=== PATIENT | male | born 1960 | race Caucasian/White ===

== ENCOUNTER 2021-04-25 09:09 | Inpatient (IN) | payer OTHER ==
[~2021-04-25] VITALS: Ht 170.2 cm; Wt 87.1 kg
[~2021-04-25 09:09] MED LIST: AVELOX 400 MG400 MG; CIPROFLOXACIN500 M3 PO; DEMADEX10 MG PO; K-DUR10 MEQ PO; LACTULOSE20 GM/30 M PO; LANTUS SUBQ; NOVOLOG100 UNIT/1; OXYCONTIN CR 1010 M1 PO; PROTONIX40 M2; ROXICODONE5 MG PO; XIFAXAN550 M1
[2021-04-25 15:36] VITALS: BP 120/66
--- NOTE | 2021-04-25 16:50 | NUR ---
Wound and cardio consult put in at this time.
--- NOTE | 2021-04-25 17:19 | NUR ---
PT ORIENTED TO ROOM AND UNIT BED LOW AND LOCKED, SIDE RAILS UP X3, CALL LIGHT IN REACH, TELEL APPLIED. WILL CONTINUE TO ASSESS.
[2021-04-25 19:49] LABS: CALCIUM 8.5 mg/dL (8.5-10.1); POTASSIUM 3.3 mmol/L (3.5-5.1)
[2021-04-25 20:04] VITALS: BP 109/56
[2021-04-25 23:39] VITALS: BP 108/59
[2021-04-26 02:54] LABS: HEMATOCRIT 29.9 % (42.0-52.0); HEMOGLOBIN 9.8 gm/dL (14.0-18.0); MCH 29.2 pg (26.0-34.0); MCHC 32.9 g/dL (28.0-37.0); MCV 88.9 fL (80.0-100.0); RBC 3.36 mil/uL (4.50-6.00); RDW 18.2 % (10.5-14.5); WBC 5.8 thou/uL (4.0-11.0)
[2021-04-26 04:07] LABS: ALBUMIN 2.4 g/dL (3.4-5.0); CALCIUM 7.6 mg/dL (8.5-10.1); CREATININE 0.9 mg/dL (0.7-1.3); TOTAL BILIRUBIN 0.6 mg/dL (0.2-1.0); TOTAL PROTEIN 6.3 g/dL (6.4-8.2)
[2021-04-26 04:24] VITALS: BP 110/54
--- NOTE | 2021-04-26 05:12 | NUR ---
SLEPT PART OF SHIFT. DENIES COMPLAINTS OF PAIN THIS SHIFT OR SHORTNESS OF AIR. AGREES TO CALL FOR ASSIST WHEN UP IN ROOM. WORKING ON GOALS AND PLAN OF CARE FOR NOC. CONTINUE TO ASSES.
[2021-04-26 08:12] VITALS: BP 109/63
--- NOTE | 2021-04-26 09:56 | 2DMMODE ---
[facility] [place] [address] 2 D/M-MODE ECHOCARDIOGRAM Name: QUEENJD Room #: 209-P ADM IN M.R.#: [id number] Admission: 04/25/21 Attend Phys: Syed Banks MD Discharge: Date of : 60 Report #: [id number] THIS REPORT FOR: cc: Lc Cain,Saray Taylor,Isaias Azevedo MD ~ APPROVED REPORT Study performed: 04/26/2021 08:17:43 EXAM: Comprehensive 2D, Doppler, and color-flow Echocardiogram Patient Location: Bedside Room #: 209 Status: routine BSA: 1.99 HR: 61 bpm BP: 109/63 mmHg Rhythm: NSR Other Information Study Quality: Adequate Indications Elevated troponin. Hx: Recent CABG, Afib, HTN, DM. 2D Dimensions RVDd: 30.67 mm IVSd: 11.29 (7-11mm) LVOT Diam: 20.84 (18-24mm) LVDd: 42.70 mm PWd: 11.43 (7-11mm) Ascending Ao: 30.04 (22-36mm) LVDs: 29.29 (25-40mm) Left Atrium: 39.98 (27-40mm) Aortic Root: 33.28 mm Volumes Left Atrial Volume (Systole) Single Plane 4CH: 36.15 mL Single Plane 2CH: 39.57 mL LA ESV Index: 20.00 mL/m2 Aortic Valve AoV Peak Jeanmarie.: 1.31 m/s AO Peak Gr.: 6.86 mmHg LVOT Max P.53 mmHg LVOT Max V: 0.94 m/s [facility] [address] [place] [address] 2 D/M-MODE ECHOCARDIOGRAM Name: JD QUEEN Room #: 209-P [facility]#: [id number] Admission: 04/25/21 Attend Phys: Syed Banks MD Discharge: Date of : 60 Report #: [id number] ROGER Vmax: 2.45 cm2 Mitral Valve E/A Ratio: 1.3 MV Decel. Time: 177.45 ms MV E Max Jeanmarie.: 0.85 m/s MV A Jeanmarie.: 0.68 m/s MV PHT: 51.46 ms IVRT: 124.57 ms Pulmonary Valve PV Peak Jeanmarie.: 1.14 m/s PV Peak Gr.: 5.17 mmHg Tricuspid Valve TR Peak Jeanmarie.: 2.34 m/s RAP Estimate: 5.00 mmHg TR Peak Gr.: 22.00 mmHg PA Pressure: 27.00 mmHg Left Ventricle The left ventricle is normal size. There is normal LV segmental wall motion. There is normal left ventricular wall thickness. Left ventricular systolic function is normal. LVEF is 60-65%. The left ventricular diastolic function is normal. Right Ventricle The right ventricle is normal size. The right ventricular systolic function is normal. Atria The left atrium size is normal. The right atrium size is normal. Aortic Valve Aortic valve is moderately sclerotic. Mild aortic regurgitation. There is no aortic valvular stenosis. Mitral Valve The mitral valve is normal in structure. There is no mitral valve regurgitation noted. No evidence of mitral valve stenosis. Tricuspid Valve The tricuspid valve is normal in structure. Mild tricuspid regurgitation. Estimated PAP is 25-30mmHg. Pulmonic Valve The pulmonary valve is normal in structure. Trace pulmonic [facility] [address] [place] [address] 2 D/M-MODE ECHOCARDIOGRAM Name: JD QUEEN Room #: 209-P ADM IN M.R.#: [id number] Admission: 04/25/21 Attend Phys: Syed Banks MD Discharge: Date of : 60 Report #: [id number] regurgitation. Great Vessels The aortic root is normal in size. The ascending aorta is normal in size. IVC is normal in size and collapses >50% with inspiration. Pericardium There is no pericardial effusion. <Conclusion> The left ventricle is normal size. LVEF is 60-65%. The left atrium size is normal. Aortic valve is moderately sclerotic. Mild aortic regurgitation. The mitral valve is normal in structure. The tricuspid valve is normal in structure. Mild tricuspid regurgitation. Estimated PAP is 25-30mmHg. The pulmonary valve is normal in structure. Trace pulmonic regurgitation. The aortic root is normal in size. There is no pericardial effusion. <ELECTRONICALLY SIGNED> By: Isaias Hardy MD 04/26/21955 5 5 Isaias Hardy MD /INF
[2021-04-26 11:02] VITALS: BP 137/64
--- NOTE | 2021-04-26 11:29 | NUR ---
Assess due to consult received. Admit with weakness and elevated troponin. Hx diabetes, CABG, cirrhosis. Pt with wound to LLE. States appetite is good, has no problems controlling BG at home, no wt changes, and no questions regarding diet. Low nutrition risk
--- NOTE | 2021-04-26 11:42 | EKG ---
[address] [address] ELECTROCARDIOGRAM REPORT Name: BRETJD Tyron Room #: 209-P ADM IN M.R.#: [id number] Admission: 04/25/21 Attend Phys: Syed Banks MD Discharge: Date of : 60 Report #: [id number] [facility] Test Date: 2021-04-26 Test Time: 09:52:28 Pat Name: JD QUEEN Department: Room: 209 P Gender: M Change Room Attendant: CAROL : 1960 Requested By: Terence Fuller Order Number: [id number] MD: Dylan Barber Measurements Intervals Bouse Rate: 64 P: -38 KS: 165 QRS: -22 QRSD: 102 T: 35 QT: 572 QTc: 591 Interpretive Statements Sinus rhythm Atrial premature complex Borderline left axis deviation RSR' in V1 or V2, probably normal variant Prolonged QT interval Compared to ECG 01/20/2012 21:53:34 Atrial premature complex(es) now present RSR' in V1 or V2 now present Prolonged QT interval now present Ectopic atrial rhythm no longer present Electronically Signed On 04-26-2021 11:41:57 CDT by Dylan Barber [email or web address] <ELECTRONICALLY SIGNED> By: Dylan Barber MD, FAC 04/26/21 [id number] Dylan Barber MD, [facility] /EPI
--- NOTE | 2021-04-26 15:34 | NUR ---
PT HAD PICC LINE CHANGED TO SIGLE LUMEN PICC PER IR. CTS CHANGE WOUND VAC TO MORE PORTABLE UNIT. INFUSION CLINIC CAME TO PT'S ROOM TO GIVE INSTRUCTIONS. PT UNDERSTANDS ALL FOLLOW UP ORDERS. DISCONTINUE TELE AND PT WILL BE TAKEN TO SECURITY TO GO HOME VIA CAB VOUCHER.
[2021-04-26 15:37] VITALS: BP 127/70
[2021-04-26 16:05] VITALS: BP 127/70
--- NOTE | 2021-04-26 16:07 | NUR ---
INITIAL ASSESSMENT: Received consult. LUIS ENRIQUE reviewed chart. Pt was transferred to [facility] from [facility] due to weakness. Pt with recent CABG at on 03/06/2021. Cardiology consulted. PT may be ready for discharge home over the weekend. LUIS ENRIQUE met with pt at bedside. Introduced role of SW. Pt is alert/orientated x 4. Pt reports he lives alone in an apt in [place], [place]. Pt has a cane and walker to use as needed. Pt was [facility] for 3 weeks and then went to [facility] for 2 weeks. Pt is currently on service with [facility]. Pt's PCP is Dr. Marilee Salguero at [facility]. Pt is aware of possible weekend discharge. Pt states his family might be able to come pick him up to drive him home. Should family not be available, nursing to contact dope house operator helper for a cab voucher. LUIS ENRIQUE discussed transportatino home with Director of Case Mgmt. LUIS ENRIQUE faxed clinical info to [facility] for review. Spoke with Marilee in intake to notify of pt's discharge. Finalized discharge orders will need to be faxed to when available. LUIS ENRIQUE is following to assist as needed with discharge planning. [facility]--
--- NOTE | 2021-04-26 17:05 | NUR ---
PT ASSESSED BY GI AND WOUND CARE TODAY. PT UP WITH PT/OT AND TAKING IN GOOD PO. REPORT GIVEN TO SOCIAL MEDIA SPECIALIST JULIET. WILL CONTINUE TO ASESS.
[2021-04-26 19:41] VITALS: BP 115/59
--- NOTE | 2021-04-26 19:45 | NUR ---
RECEIVED PT FROM MILTON MATTHEWS RN. PT IS PLEASANT, AFEBRILE, VSS, SR ON MONITOR. WILL CONTINUE TO MONITOR PT WOUND SITE ON L LEG AND CALF. PT/OT CONSULTED. FALL PRECAUTIONS IN PLACE. NO CONCERNS AT THIS TIME.
[2021-04-26] MEDS ORDERED: BUMEX2 MG PO (21:47)
[2021-04-26] MEDS ORDERED: LIPITOR80 MG PO (21:52)
--- NOTE | 2021-04-27 01:22 | NUR ---
2000 PATIENT UPSET THAT HIS CALL LIGHT WAS ANSWERED BUT NO ONE CAME BACK. NURSE EXPLAINED THAT SHE WAS UNAWARE OF HIM CALLING AND SAT DOWN AND LISTENED TO CONCERNS. REASSURED THAT LIGHT WILL BE ANSWERED THIS SHIFT AND WROTE NURSES PHONE NUMBER ON BOARD FOR PATIENT TO CALL DIRECTLY. ALSO INFORMED WOULD PASS INFO IN DAILY HUDDLE BETWEEN NURSES IN AM. INFORMED CUPOLA PATCHER OF SITUATION AND ASKED TO COME VISIT PATIENT WHEN ABLE.
[2021-04-27 02:06] LABS: HAV IgM AB (ANTI-HAV IgM) Negative (Negative); HEPATITIS B SURFACE AG Negative (Negative); HEPATITIS C VIRUS AB >11.0 (0.0-0.9)
[2021-04-27 03:57] LABS: INR 1.16; PROTIME 12.6 Seconds (10.5-12.1)
[2021-04-27 04:10] LABS: ALBUMIN 2.3 g/dL (3.4-5.0); DIRECT BILIRUBIN 0.2 mg/dL (<0.1-0.2); TOTAL BILIRUBIN 0.6 mg/dL (0.2-1.0); TOTAL PROTEIN 6.5 g/dL (6.4-8.2)
[2021-04-27 04:32] VITALS: BP 119/63
--- NOTE | 2021-04-27 05:13 | NUR ---
RESTING QUIETLY. STILL AWAITING VISIT FROM ENVIRONMENTAL REMEDIATION CONSULTANT. REMINDED ENVIRONMENTAL REMEDIATION CONSULTANT OF NEED TO VISIT. UP AD DEISY IN ROOM NEEDED. CONTINUE TO ASSES.
--- NOTE | 2021-04-27 06:06 | NUR ---
PER RN, PATIENT REQUESTING TO SPEAK TO CHOKE SETTER. PT'S DOOR CLOSED ON ARRIVAL. KNOCKED AND WENT IN. ROOM DARK AND QUIET WITH PT SLEEPING. DID NOT AWAKEN PATIENT. COMMUNICATED WITH RN CARING FOR PATIENT REGARDING VISIT ATTEMPT.
[2021-04-27 08:51] VITALS: BP 122/70
[2021-04-27] MEDS ORDERED: ADULT LOW DOSE81 MG PO (11:25)
[2021-04-27 11:35] VITALS: BP 127/70
[2021-04-27 11:47] VITALS: BP 113/62
--- NOTE | 2021-04-27 13:28 | NUR ---
PT IS AXOX4, PLEASANT; C/O PAIN IN LEG, CHEST, AND HEADACHE. RX OXYCODONE GIVEN WITH PARTIAL RELIEF. VSS, AFEBRILE, SR ON MONITOR. DR KIM CONSULTED. CARDIOLOGY CONSULTED. PT TO D/C HOME WITH HOME HEALTH. DISHARGE EDUCATION CONDUCTED. FOLLOW UP APPT DISCUSSED, ALONG WITH STOPPED MEDICATIONS. PT COMMUNICATED UNDERSTANDING. PT TO D/C HOME VIA CAB. CAB VOUCHER PROVIDED. NO CONCERNS AT THIS TIME.
[2021-04-27] MEDS ORDERED: CEPHALEXIN500 MG PO (13:44)
--- NOTE | 2021-05-01 08:48 | NUR ---
SW received call from Eli at [facility] stating they did not receive discharge ppwk. Pt was discharged home on Thursday, 04/27. SW faxed d/c ppwk to and received confirmation. No additional SW needs identified at this time, but is available to assist should needs arise.
--- NOTE | 2021-05-09 15:52 | HC ---
[facility] [place] [address] CONSULTATION Name: JD QUEEN Tyron Room #: 209-P [facility] IN ..#: [id number] Admission: 04/25/21 Attend Phys: Syed Banks MD Discharge: 04/27/21 Date of : 60 Report #: [id number] THIS REPORT FOR: cc: Lc Cain,Saray Michaud,Delano Sheth MD ~ DATE OF SERVICE: 04/26/2021 CHIEF COMPLAINT: Surgical wound to the left leg. HISTORY OF PRESENT ILLNESS: This is a 60-year-old male patient who underwent coronary artery bypass surgery in 02/2021. He had vein graft harvest sites from his legs. One of the surgical sites did not close and he has an open wound. I have been asked to see him with regard to wound care. The patient states that he has had a moderate amount of drainage in this location, but denies significant pain. 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 FAMILY HISTORY: Positive for diabetes. SOCIAL HISTORY: The patient is a retired nurse [employer]. No history of alcohol or tobacco use. REVIEW OF SYSTEMS: CONSTITUTIONAL: The patient denies fever, chills or weight loss. NEUROLOGICAL: The patient denies focal weakness, numbness, tingling. EYES: The patient denies visual changes, redness, drainage. ENT: The patient denies earache, nasal drainage, sore throat. CARDIOVASCULAR: The patient denies chest pain, palpitations, diaphoresis. PULMONARY: Does complain of mild cough and mild shortness of breath. GASTROINTESTINAL: Denies nausea, vomiting or abdominal pain. ORTHOPEDIC: The patient notes swelling in the wound on his left leg. Others systems in a 14-point review of systems are negative. PHYSICAL EXAMINATION: VITAL SIGNS: At this time include temperature 36.4, pulse 74, respiration 17, blood pressure 127/70. GENERAL: This is a somewhat chronically ill-appearing male. The patient appears in no distress. HEENT: Head normocephalic. Nose and throat clear. NECK: Supple. LUNGS: Diminished. HEART: Regular. [facility] [address] [place] [address] CONSULTATION Name: JD QUEEN Room #: 209-[facility] IN [facility].#: [id number] Admission: 04/25/21 Attend Phys: Syed Banks MD Discharge: 04/27/21 Date of : 60 Report #: [id number] ABDOMEN: Soft. Bowel sounds are present, slightly distended. EXTREMITIES: Lower extremities demonstrate venous dermatitis to the lower extremities. There is a surgical wound to the medial proximal pretibial region on the left side. It is healthy clean, granulating, does not appear to be infected. NEUROLOGIC: The patient alert, oriented and appropriate. LABORATORY DATA: Sodium 139, potassium 3.0, chloride 102, CO2 of 25, BUN 15, creatinine is 0.9, albumin is 2.4. White blood cell count 5.8 with a hemoglobin of 9.8. CLINICAL IMPRESSION: 1. Surgical wound, left leg following a vein harvest for coronary artery bypass graft surgery. 2. Generalized weakness. 3. Diabetes mellitus. 4. History of cirrhosis, hepatitis C. RECOMMENDATIONS: At this point, we will recommend silver alginate, ABD, Kerlix and Ian wrap to the left lower extremity. We will recommend elevation at all times. Aggressive nutritional support. Continue with other medical management. I appreciate being asked to see him in consultation. <ELECTRONICALLY SIGNED> By: Delano Rodriguez MD 05/09/21 1552 [id number] Delano Rodriguez MD /nt
== END 2021-04-27 14:31 | disposition home health service (06) | DRG 441 ==
LOC: 2N 09:09
PROVIDERS: Nurse Practitioner; ADMIT Hospitalist; ATTEND Hospitalist
DX: K72.90 Hepatic failure, unspecified without coma (principal); E43 Unspecified severe protein-calorie malnutrition; I97.89 Other postprocedural complications and disorders of the circulatory system, not elsewhere classified; L03.818 Cellulitis of other sites; R53.1 Weakness; R77.8 Other specified abnormalities of plasma proteins; B19.20 Unspecified viral hepatitis C without hepatic coma; I25.10 Atherosclerotic heart disease of native coronary artery without angina pectoris; E11.9 Type 2 diabetes mellitus without complications; K74.60 Unspecified cirrhosis of liver; D64.9 Anemia, unspecified; D69.6 Thrombocytopenia, unspecified; F43.10 Post-traumatic stress disorder, unspecified; E87.6 Hypokalemia; T81.89XA Other complications of procedures, not elsewhere classified, initial encounter; Y83.8 Other surgical procedures as the cause of abnormal reaction of the patient, or of later complication, without mention of misadventure at the time of the procedure; Y82.8 Other medical devices associated with adverse incidents; Y92.89 Other specified places as the place of occurrence of the external cause; Z95.1 Presence of aortocoronary bypass graft
CPT/HCPCS: 10797